=== PATIENT | male | born 2000 | race Hispanic/Latino ===

== ENCOUNTER 2020-06-05 16:45 | Emergency (ER) | payer OTHER ==
[2020-06-05] MEDS ORDERED: CEPHALEXIN 500 MG CAPSULE ONE (17:20)
[2020-06-05] MEDS ORDERED: TETANUS/DIPHTHERIA TOXOID [ADULT] 0.5 ML VIAL IM ONE (17:21)
[2020-06-05] MEDS ORDERED: KETOROLAC TROMETHAMINE 30MG/ML ONE (17:21)
[2020-06-05] MEDS ORDERED: ACETAMINOPHEN EXTRA STRENGTH 500 MG TABLET ONE (17:26)
== END 2020-06-05 17:42 | disposition home or self-care (01) ==
LOC: EDH 16:45
DX: S83.92XA Sprain of unspecified site of left knee, initial encounter (principal); Y93.55 Activity, bike riding; Y93.89 Activity, other specified; Y92.89 Other specified places as the place of occurrence of the external cause; Y99.8 Other external cause status
CPT/HCPCS: 29505; 73562; 90471; 90714; J1885